=== PATIENT | female | born 1950 | race Caucasian/White ===

== ENCOUNTER 2016-11-07 20:57 | Emergency (ER) | payer OTHER, MEDICAID ==
[2016-11-07 23:01] VITALS: BP 143/86
== END 2016-11-07 23:01 | disposition home or self-care (01) ==
LOC: ED 20:57
DX: S52.501A Unspecified fracture of the lower end of right radius, initial encounter for closed fracture (principal); W10.8XXA Fall (on) (from) other stairs and steps, initial encounter; Y93.89 Activity, other specified; Y92.89 Other specified places as the place of occurrence of the external cause; Y99.8 Other external cause status
CPT/HCPCS: J1885

== ENCOUNTER 2016-12-18 08:27 | Emergency (ER) | payer OTHER, MEDICAID ==
[~2016-12-18] VITALS: Ht 152.4 cm; Wt 80.3 kg
[2016-12-18 09:07] LABS: microscopic required? NO
[2016-12-18 09:09] LABS: BASOPHIL % 0.6 % (0-2); PLATELET COUNT 207 x10^3mcL (130-400); RED CELL DISTRIBUTION WIDTH 13.6 % (11.5-14.5)
[2016-12-18 09:15] LABS: CALCIUM 8.7 mg/dL (8.5-10.1); CHLORIDE SERUM 104 mmol/L (98-107); CREATININE SERUM 0.9 mg/dL (0.6-1.0); GFR1 > 60 mL/min; GLUCOSE SERUM 149 mg/dL (74-106); POTASSIUM SERUM 3.8 mmol/L (3.5-5.1); SODIUM SERUM 140 mmol/L (136-145)
[2016-12-18 09:19] LABS: ALBUMIN 3.6 g/dL (3.4-5.0); ALKALINE PHOSPHATASE 102 U/L (46-116); ALT/SGPT 47 U/L (14-59); AMYLASE 61 U/L (25-115); AST/SGOT 28 U/L (15-37); BILIRUBIN TOTAL 0.41 mg/dL (0.20-1.00); CHOLESTEROL 159 mg/dL (<200); HDL CHOLESTEROL 41 mg/dL (40-60); LIPASE 164 IU/L (73-393); TOTAL PROTEIN, SERUM 7.6 g/dL (6.4-8.2)
[2016-12-18 09:33] LABS: urine erythrocyte NEGATIVE (NEGATIVE)
[2016-12-18 09:38] LABS: T4(THYROXINE) 7.1 ug/dL (4.7-13.3)
[2016-12-18 10:48] VITALS: BP 108/56
== END 2016-12-18 10:48 | disposition home or self-care (01) ==
LOC: ED 08:27
PROVIDERS: Emergency Medicine
DX: R10.13 Epigastric pain (principal); R11.0 Nausea; R30.0 Dysuria; I10 Essential (primary) hypertension; E66.9 Obesity, unspecified; M54.9 Dorsalgia, unspecified; M79.7 Fibromyalgia
CPT/HCPCS: 83880; Q0092; Q0162

== ENCOUNTER 2019-05-07 11:45 | Emergency (ER) | payer OTHER, MEDICAID ==
[~2019-05-07] VITALS: Ht 149.9 cm; Wt 83.0 kg
[2019-05-07 11:51] VITALS: Ht 149.9 cm; Wt 83.0 kg
[2019-05-07 14:10] VITALS: BP 161/53
== END 2019-05-07 14:10 | disposition home or self-care (01) ==
LOC: ED 11:45
DX: L65.9 Nonscarring hair loss, unspecified (principal); L98.8 Other specified disorders of the skin and subcutaneous tissue; R63.5 Abnormal weight gain; K59.00 Constipation, unspecified; I10 Essential (primary) hypertension; M79.7 Fibromyalgia; Z88.5 Allergy status to narcotic agent
CPT/HCPCS: 36415